=== PATIENT | male | born 1995 | race Caucasian/White ===

== ENCOUNTER 2018-08-04 14:24 | Emergency (ER) | payer SELFPAY ==
[~2018-08-04] VITALS: Ht 185.4 cm; Wt 70.0 kg
[2018-08-04] MEDS ORDERED: FENTANYL CITRATE/PF 50MCG/ML 2ML VIAL IV ONE ×2 (16:30→19:00)
[2018-08-04] MEDS ORDERED: PROPOFOL 200MG/20ML VIAL IV ONE (19:00)
[2018-08-04] MEDS ORDERED: ETOMIDATE 2MG/ML 10ML VIAL IV ONE ×2 (19:53→20:15)
[2018-08-04 21:20] VITALS: BP 122/69
== END 2018-08-04 21:22 | disposition home or self-care (01) ==
LOC: ER 14:24
DX: S43.015A Anterior dislocation of left humerus, initial encounter (principal); S43.035A Inferior dislocation of left humerus, initial encounter; X50.1XXA Overexertion from prolonged static or awkward postures, initial encounter; Y93.67 Activity, basketball; Y92.89 Other specified places as the place of occurrence of the external cause; Y99.8 Other external cause status
CPT/HCPCS: 23650; 73030; 99152; 99285; J2704; J3010; J3490; A4565; L3670